=== PATIENT | female | born 2000 | race Caucasian/White ===

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

== ENCOUNTER 2020-05-07 10:12 | Emergency (ER) | payer OTHER ==
[~2020-05-07] VITALS: Ht 152.4 cm; Wt 54.4 kg
[2020-05-07 10:41] VITALS: BP 113/69
== END 2020-05-07 11:40 | disposition home or self-care (01) ==
LOC: MED 10:12
DX: U07.1 COVID-19 (principal); J02.9 Acute pharyngitis, unspecified
CPT/HCPCS: 99281